=== PATIENT | male | born 1945 | race Caucasian/White ===

== ENCOUNTER → 2021-01-11 09:24 | Outpatient (BNVA) | payer MEDICARE, OTHER, SELFPAY | PROVIDERS: Visit Provider Nurse Practitioner Family | DX: Z20.822 Contact with and (suspected) exposure to COVID-19 (principal) | CPT/HCPCS: 87635 ==

== ENCOUNTER 2021-01-14 07:26 | Inpatient (IN) | payer MEDICARE, OTHER, SELFPAY ==
[2021-01-14 07:29] VITALS: BP 151/65; PULSE 66; RESP 22; TEMP 36.8; O2SAT 91; BMI 37.3
--- NOTE | 2021-01-14 07:46 | XR_ITS ---
WS: [id number] Portable AP upright chest, 01/14/2021 Clinical Data: covid /dyspnea Comparison: None. Findings: There is moderate patchy bilateral pulmonary opacity consistent with pneumonia. The heart i s slightly enlarged. No nodules, masses or effusions are seen. XR/XR chest 1V portable [id number] Impression: 1. Moderate patchy bilateral pulmonary opacities consistent with pneumonia. 2. Cardiomegaly.
--- NOTE | 2021-01-14 08:01 | W.ED.COVID ---
HPI - COVID General: Chief Complaint: ER Hold Stated Complaint: COVID +, confusion, low 02 Time Seen by Provider: 01/14/21 07:35 Triage information: Has fever, cough or shortness of breath. No known COVID + exposure last 14 days History of Present Illness: HPI Narrative: 76 for a male presents emergency room complaining of difficulty breathing. Patient tested positive for Covid on 5 is reported back 9 7 was on a PCR done at the walk-in clinic. He is moderately confused. He is aware of his confusion is difficult time answering even simple questions oxygen sats are borderline. He is requiring oxygen now at rest on room air he will maintain 91% with any effort whatsoever he desats into the mid 80s. Patient denies any chest pain. Has not had a productive cough. MD complaint: known COVID positive COVID 19 common symptoms: positive fever(s), chills, cough, non-productive cough, dyspnea, body aches, throat pain and nasal congestion; negative nausea, vomiting or diarrhea COVID 19 other sytmptoms: positive requiring oxygen; negative chest pain Onset (ago): day(s) Pertinent comorbid conditions: hypertension and obesity Treatment prior to arrival: none COVID Results: Nasal/Oral Coronavirus 2019 PCR Detected H 01/11/21 09:24 01/11/21 Review of Systems Const: Reports: fever(s), chills and body aches ENMT: Reports: throat pain and nasal congestion Card: Denies: chest pain, edema, dyspnea on exertion or orthopnea Resp: Reports: dyspnea and non-productive cough GI: Denies: abdominal pain, nausea, vomiting, hematemesis, coffee ground emesis, diarrhea, constipation, bloating, hematochezia or melena : Denies: flank pain, dysuria, urinary frequency or urinary urgency Skin/Breast: Denies: rash or pruritus PFSH ED PFSH: Medical History (Updated 01/14/21 @ 15:08 by Ken Araiza DO) BPH (benign prostatic hyperplasia) Hyperlipidemia Hypertension Pulmonary embolism Family History (Updated 01/14/21 @ 09:51 by Raffi Garnett MD) Other CAD (coronary artery disease) Cancer Social History Smoking and tobacco status: former smoker Alcohol intake: never Physical Exam Const: COMMON NORMALS: no acute distress GENERAL APPEARANCE: cooperative and comfortable HENMT: COMMON NORMALS: normocephalic and atraumatic HEAD & SCALP: normocephalic and atraumatic Neck/C-Spine: COMMON NORMALS: no JVD Resp: COMMON NORMALS: normal respiratory effort, No retractions, No use of accessory muscles and clear to auscultation bilaterally AUSCULTATION: clear to auscultation bilaterally Cardio: COMMON NORMALS: no JVD, regular rate, regular rhythm and No murmurs present (Cardio) RATE: regular rate RHYTHM: regular rhythm GI: COMMON NORMALS: Soft to palpation and No hepatosplenomegaly present AUSCULTATION: Yes normoactive bowel sounds PALPATION: Yes Soft to palpation, No Tenderness to palpation present (GI), No Guarding due to palpation present (GI) and Yes No hepatosplenomegaly present Extremity: COMMON NORMALS: normal to inspection, capillary refill normal, no clubbing, cyanosis or edema, no calf tenderness and no pedal edema Skin: COMMON NORMALS: no rashes or lesions noted GENERAL SKIN EXAM: no rashes or lesions noted Course Vital Signs: Vital signs: Vital Signs Temperature 98.3 F 01/14/21 07:29 Pulse Rate 66 01/14/21 07:29 Respiratory Rate 22 H 01/14/21 07:29 Blood Pressure 151/65 01/14/21 07:29 Pulse Oximetry 91 01/14/21 07:29 MDM - COVID MDM Narrative: Medical decision making narrative: Given his and new oxygen requirement concerned this patient may rapidly decline. Recommend that he be admitted discussed Dr. Garnett he can agrees orders are written. Lab Data: Labs: Lab Results 01/14/21 01/14/21 01/14/21 Range/Units 07:58 08:35 08:35 WBC 8.0 (4.0-10.0) 10^3/ uL RBC 5.11 (4.1-5.3) 10^6/u L Hgb 14.4 (11.7-16.6) g/dL Hct 45.3 (42.0-52.0) % MCV 88.6 (80-94) fl MCH 28.2 (28.0-34.0) pg MCHC 31.8 (30.0-36.0) g/dL RDW 15.1 (12.1-15.1) % Plt Count 200 (130-400) 10^3/c mm MPV 10.8 H (7.4-10.4) fL Neut % (Auto) 70.6 % Lymph % (Auto) 14.6 % [place] % (Auto) 13.9 % Eos % (Auto) 0.5 % Baso % (Auto) 0.2 % Neut # (Auto) 5.67 (1.8-7.7) 10^3/u L Lymph # (Auto) 1.2 (0.8-4.8) 10^3/u L [place] # (Auto) 1.1 H (0.2-0.9) 10^3/u L Eos # (Auto) 0.0 (0.0-0.8) 10^3/u L Baso # (Auto) 0.0 (0.0-0.1) 10^3/u L Nucleated RBC % (a uto) 0 % Nucleated RBCs # 0.0 /100WBC D-Dimer Cancelled Specimen Type Arterial Sample Site Radial, left ABG pH 7.45 (7.35-7.45) ABG pCO2 35.8 (35-45) mmHg ABG pO2 67.4 L (80.0-100.0) mmH g ABG HCO3 24.8 (22-26) mmol/L ABG Base Excess 1.1 (-2.0-2.0) mmol/ L Francis Test Pos Hematocrit 45.6 (42-52) % O2 Delivery Device Nc O2 Liters/Min 3.0 % FiO2 32.0 % Electrical Maintenance Engineer ID Ed Sodium (136-145) mmol/L Potassium (3.5-5.1) mmol/L Chloride (98-107) mmol/L Carbon Dioxide (22-29) mmol/L Anion Gap (5-19) BUN (8-23) mg/dL Creatinine (0.7-1.2) mg/dL GFR Calculation Glucose (65-115) mg/dL Calculated Osmolal ity (285-295) mOsm/k g Lactic Acid (0.5-2.2) mmol/L Calcium (8.5-10.5) mg/dL Total Bilirubin (0.15-1.2) mg/dL AST (0-40) U/L ALT (0-41) U/L Alkaline Phosphata se (40-130) IU/L Creatine Kinase (39-308) U/L Troponin T Gen 5 n g/L (0-15) ng/L C-Reactive Protein (0.0-4.9) mg/L NT-Pro-B Natriuret Pep (0-125) pg/mL Total Protein (6.6-8.7) g/dL Albumin (3.5-5.2) g/dL Globulin (1.3-4.6) g/dL Procalcitonin (0-0.5) ng/mL 01/14/21 01/14/21 01/14/21 Range/Units 08:35 08:35 09:20 WBC (4.0-10.0) 10^3/ uL RBC (4.1-5.3) 10^6/u L Hgb (11.7-16.6) g/dL Hct (42.0-52.0) % MCV (80-94) fl MCH (28.0-34.0) pg MCHC (30.0-36.0) g/dL RDW (12.1-15.1) % Plt Count (130-400) 10^3/c mm MPV (7.4-10.4) fL Neut % (Auto) % Lymph % (Auto) % [place] % (Auto) % Eos % (Auto) % Baso % (Auto) % Neut # (Auto) (1.8-7.7) 10^3/u L Lymph # (Auto) (0.8-4.8) 10^3/u L [place] # (Auto) (0.2-0.9) 10^3/u L Eos # (Auto) (0.0-0.8) 10^3/u L Baso # (Auto) (0.0-0.1) 10^3/u L Nucleated RBC % (a uto) % Nucleated RBCs # /100WBC D-Dimer 0.79 H Specimen Type Sample Site ABG pH (7.35-7.45) ABG pCO2 (35-45) mmHg ABG pO2 (80.0-100.0) mmH g ABG HCO3 (22-26) mmol/L ABG Base Excess (-2.0-2.0) mmol/ L Francis Test Hematocrit (42-52) % O2 Delivery Device O2 Liters/Min % FiO2 % Electrical Maintenance Engineer ID Sodium 137 (136-145) mmol/L Potassium 4.8 (3.5-5.1) mmol/L Chloride 101 (98-107) mmol/L Carbon Dioxide 20 L (22-29) mmol/L Anion Gap 20.8 H (5-19) BUN 30 H (8-23) mg/dL Creatinine 1.5 H (0.7-1.2) mg/dL GFR Calculation Not Reportable Glucose 96 (65-115) mg/dL Calculated Osmolal ity 290 (285-295) mOsm/k g Lactic Acid 1.4 (0.5-2.2) mmol/L Calcium 8.0 L (8.5-10.5) mg/dL Total Bilirubin 0.5 (0.15-1.2) mg/dL AST 35 (0-40) U/L ALT 30 (0-41) U/L Alkaline Phosphata se 60 (40-130) IU/L Creatine Kinase (39-308) U/L Troponin T Gen 5 n g/L (0-15) ng/L C-Reactive Protein 99.0 H (0.0-4.9) mg/L NT-Pro-B Natriuret Pep (0-125) pg/mL Total Protein 6.3 L (6.6-8.7) g/dL Albumin 3.5 (3.5-5.2) g/dL Globulin 2.8 (1.3-4.6) g/dL Procalcitonin 0.15 (0-0.5) ng/mL 01/14/21 01/14/21 Range/Units 09:20 09:20 WBC (4.0-10.0) 10^3/ uL RBC (4.1-5.3) 10^6/u L Hgb (11.7-16.6) g/dL Hct (42.0-52.0) % MCV (80-94) fl MCH (28.0-34.0) pg MCHC (30.0-36.0) g/dL RDW (12.1-15.1) % Plt Count (130-400) 10^3/c mm MPV (7.4-10.4) fL Neut % (Auto) % Lymph % (Auto) % [place] % (Auto) % Eos % (Auto) % Baso % (Auto) % Neut # (Auto) (1.8-7.7) 10^3/u L Lymph # (Auto) (0.8-4.8) 10^3/u L [place] # (Auto) (0.2-0.9) 10^3/u L Eos # (Auto) (0.0-0.8) 10^3/u L Baso # (Auto) (0.0-0.1) 10^3/u L Nucleated RBC % (a uto) % Nucleated RBCs # /100WBC D-Dimer Specimen Type Sample Site ABG pH (7.35-7.45) ABG pCO2 (35-45) mmHg ABG pO2 (80.0-100.0) mmH g ABG HCO3 (22-26) mmol/L ABG Base Excess (-2.0-2.0) mmol/ L Francis Test Hematocrit (42-52) % O2 Delivery Device O2 Liters/Min % FiO2 % Electrical Maintenance Engineer ID Sodium (136-145) mmol/L Potassium (3.5-5.1) mmol/L Chloride (98-107) mmol/L Carbon Dioxide (22-29) mmol/L Anion Gap (5-19) BUN (8-23) mg/dL Creatinine (0.7-1.2) mg/dL GFR Calculation Glucose (65-115) mg/dL Calculated Osmolal ity (285-295) mOsm/k g Lactic Acid (0.5-2.2) mmol/L Calcium (8.5-10.5) mg/dL Total Bilirubin (0.15-1.2) mg/dL AST (0-40) U/L ALT (0-41) U/L Alkaline Phosphata se (40-130) IU/L Creatine Kinase 91 (39-308) U/L Troponin T Gen 5 n g/L 17 H (0-15) ng/L C-Reactive Protein (0.0-4.9) mg/L NT-Pro-B Natriuret Pep 402 H (0-125) pg/mL Total Protein (6.6-8.7) g/dL Albumin (3.5-5.2) g/dL Globulin (1.3-4.6) g/dL Procalcitonin (0-0.5) ng/mL COVID Results: Nasal/Oral Coronavirus 2019 PCR Detected H 01/11/21 09:24 01/11/21 Discharge Plan Discharge Patient Disposition: Admitted As Inpatient Admit Provider: Raffi Garnett Clinical Impression: Pneumonia due to COVID-19 virus, Acute kidney injury Condition: Stable Coding Level of Care Code ED Scale Shooter for Emmie Fwd Exam Comprehensive
[2021-01-14 08:08] LABS: ABG PCO2 35.8 mmHg (35-45); ABG PH Result 7.45 (7.35-7.45); Arterial Blood Gas Hematocrit 45.6 % (42-52); Base Excess ABG 1.1 mmol/L (-2.0-2.0); Blood Gas Allen Test Pos; Blood Gas Sample Type Arterial; HCO3 ABG 24.8 mmol/L (22-26); PO2 ABG 67.4 mmHg (80.0-100.0)
[2021-01-14 08:09] LABS: Blood Gas Operator Identificat ED; Blood Gas Sample Site Radial, left; Oxygen Device NC
[2021-01-14 08:51] LABS: Basophils % 0.2 %; Eosinophils % 0.5 %; Hematocrit 45.3 % (42.0-52.0); Hemoglobin 14.4 g/dL (11.7-16.6); Lymphocytes # 1.2 10^3/uL (0.8-4.8); Lymphocytes % 14.6 %; Mean Corpuscular HGB Conc 31.8 g/dL (30.0-36.0); Mean Corpuscular Hemoglobin 28.2 pg (28.0-34.0); Mean Corpuscular Volume 88.6 fl (80-94); Mean Platelet Volume 10.8 fL (7.4-10.4); Monocytes # 1.1 10^3/uL (0.2-0.9); Monocytes % 13.9 %; Neutrophils # 5.67 10^3/uL (1.8-7.7); Neutrophils % 70.6 %; Nucleated Red Blood Cells % 0 %; Platelet Count 200 10^3/cmm (130-400); Red Blood Count 5.11 10^6/uL (4.1-5.3); Red Cell Distribution Width 15.1 % (12.1-15.1)
[2021-01-14 09:11] LABS: Alanine Aminotransferase 30 U/L (0-41); Albumin Level 3.5 g/dL (3.5-5.2); Alkaline Phosphatase 60 IU/L (40-130); Blood Urea Nitrogen 30 mg/dL (8-23); Carbon Dioxide 20 mmol/L (22-29); Chloride 101 mmol/L (98-107); Globulin 2.8 g/dL (1.3-4.6); Glucose 96 mg/dL (65-115); Osmolality Calculated 290 mOsm/kg (285-295); Sodium 137 mmol/L (136-145); Total Bilirubin 0.5 mg/dL (0.15-1.2); Total Protein 6.3 g/dL (6.6-8.7)
[2021-01-14 09:15] LABS: Anion Gap 20.8 (5-19); Potassium 4.8 mmol/L (3.5-5.1)
[2021-01-14 09:16] LABS: Aspartate Amino Transferase 35 U/L (0-40)
[2021-01-14 09:18] LABS: Procalcitonin 0.15 ng/mL (0-0.5)
[2021-01-14 09:33] LABS: Lactic Sepsis W/Reflex 1.4 mmol/L (0.5-2.2)
[2021-01-14 09:46] LABS: D Dimer 0.79 ug/mIFEU (0-0.59)
--- NOTE | 2021-01-14 09:50 | PM.HP ---
Providers/Chief Complaint Primary Care Provider: Jaime Macias Chief Complaint: O2 at 90 History of Present Illness Yaron Garzon is a 76 year old male prior smoker with history of PE, and hyperlipidemia. He was sent to the ER from the infusion lab. Prior to his monoclonal antibody infusion he was told that his oxygen was too low for infusion. He reports he began having symptoms on Sunday the with severe diarrhea which has now subsided. He tested positive for Covid on Sunday the . He is currently requiring 3 L of oxygen and is not normally on oxygen at home. He reports that he is short of breath but this is not far from baseline due to a prior PE. He reports he has coughed up 4-5 episodes of bloody streaked sputum. He denies chest pain, fever, and headache. He received his second dose of the Moderna vaccine in July. Review of Systems General: Reports: 10 or more systems reviewed and unremarkable except in HPI and below Const: Denies: fever(s) or chills Eyes: Denies: change in vision ENMT: Denies: throat pain Card: Denies: chest pain or palpitations Resp: Reports: dyspnea and hemoptysis (blood streaked sputum) GI: Denies: abdominal pain, nausea or vomiting : Denies: flank pain, difficulty urinating or dysuria Musc: Denies: neck pain or back pain Skin/Breast: Denies: rash Neuro: Denies: headache(s) Psych: Denies: anxiety Endo: Denies: polyuria [place]/Lymph: Denies: easy bruising All/Imm: Denies: urticaria Medications/Allergies Home Medications Medication Instructions Recorded Confirmed Last Taken Type aspirin 81 mg tablet,delayed 81 mg PO DAILY 01/11/21 01/13/21 Unknown History release finasteride 5 mg tablet 5 mg PO DAILY 01/11/21 01/13/21 Unknown History lisinopril 20 1 tab PO DAILY 01/11/21 01/13/21 Unknown History mg-hydrochlorothiazide 12.5 mg tablet lovastatin 40 mg tablet 40 mg PO DAILY 01/11/21 01/13/21 Unknown History multivitamin 1 tab PO DAILY 01/11/21 01/13/21 Unknown History tamsulosin 0.4 mg capsule 0.4 mg PO DAILY 01/11/21 01/13/21 Unknown History Allergies Allergy/AdvReac Type Severity Reaction Status Date / Time No Known Allergies Allergy Verified 01/14/21 09:51 PFSH Acute PFSH: Medical History (Updated 01/14/21 @ 10:14 by Raffi Garnett MD) BPH (benign prostatic hyperplasia) Hyperlipidemia Hypertension Pulmonary embolism Family History (Updated 01/14/21 @ 09:51 by Raffi Garnett MD) Other CAD (coronary artery disease) Cancer Social History Smoking and tobacco status: former smoker Alcohol intake: never Supplemental PFSH Information: No surgical history Vitals/I&O/Wt Last Vital Signs Temp 98.3 F 01/14/21 07:29 Pulse 66 01/14/21 07:29 Resp 22 H 01/14/21 07:29 BP 151/65 01/14/21 07:29 Pulse Ox 91 01/14/21 07:29 Weight last 48 hrs Weight 117.934 kg Physical Exam Narrative: EXAM NARRATIVE: General is a male sitting on the side of the bed in no acute distress HEENT pupils reactive, oropharynx clear. Neck supple no lymphadenopathy or JVD. Respiratory right lungs clear, slight coarse breath sounds in right lower lobe. No wheezing. Cardio regular rate and rhythm. No murmurs GI abdomen soft, nontender, positive bowel sounds. Extremities no cyanosis or clubbing. 1+ lower extremity edema, left greater than right deferred Neuro no focal neurological deficits Data : 01/14/21 08:35 01/14/21 08:35 Other data: D-dimer 0.79 Anion gap 20.8 CRP 99 Chest x-ray moderate patchy bilateral pulmonary opacities consistent with pneumonia ABG demonstrates a pH of 7.45, PCO2 of 36, PO2 of 67 on 3 L LFTs are normal Troponin pending Procalcitonin 0.15 Urinalysis ordered Covid PCR positive on January 11 A&P Assessment and plan (1) Pneumonia due to COVID-19 virus: Significant COVID-19 pneumonia requiring oxygen currently at 3 L. Placed on remdesivir Placed on dexamethasone Pulmonary toilet Incentive spirometry Close follow-up for improvement. For any worsening consider Actemra Status: Acute (2) Hemoptysis: Patient with only mildly elevated D-dimer. However, he has past history of pulmonary embolism. Check CTA. Check venous duplex lower extremities. Status: Acute (3) Acute kidney injury: Hold lisinopril and hydrochlorothiazide Encourage p.o. intake Avoid significant IV fluids secondary to potential for ARDS and worsening respiratory status with significant IV fluids. Check CK Status: Acute (4) Hypertension: Hold lisinopril and hydrochlorothiazide secondary to renal insufficiency Status: Acute Additional A&P Information Multiple other medical problems as outlined in past medical history Full code Lovenox for DVT prophylaxis Attestations Medical Necessity Statement*: Will need greater than 2 midnight stay for evaluation and treatment of COVID-19 pneumonia requiring oxygen. Time Spent in Patient Care: Greater than 35 minutes Coding Level of Care Code Acute Surface Hydrologist for [facility] Fwd Diagnoses Pneumonia due to COVID-19 virus U07.1; J12.82 Hemoptysis R04.2 Acute kidney injury N17.9 Hypertension I10
--- NOTE | 2021-01-14 09:51 | PC.PHAR ---
pt states he takes care of his own medications-pt states he only takes the medications entered
--- NOTE | 2021-01-14 09:53 | CT_ITS ---
WS: [id number] CTA OF THE CHEST WITH PULMONARY EMBOLISM PROTOCOL TECHNIQUE: High-resolution contrast enhanced CTA of the chest with coronal and sagittal reformatted i mages with pulmonary embolism protocol. MIP images are also reviewed. CLINICAL INFORMATION: hemoptysis COMPARISON: None. DLP: 641.[address] scans at [facility] use at least one of these dose optimization techniques: automated e xposure control; mA and/or kV adjustment per patient size (includes targeted exams where dose is matc hed to clinical indication); or iterative reconstruction. FINDINGS: Proximal main pulmonary arteries are normal. Normal segmental and subsegmental pulmonary arteries. No filling defects. No evidence of pulmonary embolus. Bilateral hazy left greater than right groundglass infiltrates in a perihilar distribution left great er than right and left greater than right lower lobes. No focal consolidation. Subsegmental atelectas is in the lung bases. Trace bilateral pleural fluid. Aortic calcification. Normal caliber thoracic aorta. Coronary calcification. Small right thyroid nodu le. Enlarged anterior mediastinal, paratracheal, hilar and subcarinal lymph nodes nonspecific but lik shane reactive. Largest lymph node right hilum measuring 2.3 CM. No axillary lymphadenopathy. Adrenal glands are normal. Normal GE junction. CT/CT angio chest PE protcl [id number] IMPRESSION: 1. No evidence of pulmonary embolus. 2. Bilateral hilar and lower lobe hazy groundglass infiltrates compatible with COVID 19 pneumonia. 3. Trace bilateral pleural fluid. 4. Enlarged mediastinal, hilar, paratracheal and subcarinal lymph nodes nonspe cific but likely reactive.
[2021-01-14 10:25] LABS: Troponin T (5th) Once 17 ng/L (0-15)
[2021-01-14] MEDS: remdesivir 200 MG in sodium chloride 0.9% (100 ml) 60 ML 100 MG IV (10:59)
[2021-01-14] MEDS: dexamethasone 10 mg/mL INJ 6 MG IVP (10:59)
[2021-01-14 11:14] LABS: Creatine Phosphokinase 91 U/L (39-308); NT Pro B Type Natriuretic Pept 402 pg/mL (0-125)
[2021-01-14] MEDS: iodixanol 320 mg/mL 100mL Btl IV (11:17)
[2021-01-14 15:10] LABS: Bacteria Urine TRACE /hpf; Bilirubin Urine 1+ (Negative); Blood Urine Neg (Negative); Glucose Urine UA Norm (Normal); Ketones Urine Negative (Negative); Leukocyte Esterase Urine Trace (Negative); Nitrate Urine Negative (Negative); Protein Urine 1+ (Negative); RBC Urine 0-4 /hpf (0-2); Specific Gravity, Urine 1.015 (1.005-1.030); Urine Appearance SL Hazy (CLEAR); Urine Color Amber (Yellow); Urobilinogen Urine Norm (Negative); pH Urine 6.5 (5-7)
[2021-01-14 15:11] LABS: Add Urine Culture? No; Mucus Urine 1+ /hpf
[2021-01-14 15:28] VITALS: BP 123/62; PULSE 63; RESP 22; O2SAT 94
[2021-01-14 16:48] VITALS: BMI 37.3
[2021-01-14 16:49] VITALS: BP 126/65; PULSE 60; RESP 18; TEMP 36.8; O2SAT 95
--- NOTE | 2021-01-14 16:49 | USR_ITS ---
PROCEDURE INFORMATION: Exam: US Duplex Lower Extremity Veins, Bilateral Exam date and time: 01/14/2021 4:49 PM Age: 76 years old Clinical indication: Swelling (edema) of limb; Lower extremity, bilateral; Additional info: Edema, increased dimer, prior history lle dvt TECHNIQUE: Imaging protocol: Real-time duplex ultrasound of the extremities with 2-D smith scale, color Doppler flow and spectral waveform analysis with image documentation. Complete exam focused on the bilateral lower extremity veins. COMPARISON: No relevant prior studies available. FINDINGS: Right deep veins: Unremarkable. The common femoral, femoral, proximal profunda femoral and popliteal veins are patent without thrombus. Normal Doppler waveforms. Normal compressibility and/or augmentation response. Right superficial veins: Saphenofemoral junction is patent without thrombus. Left deep veins: Unremarkable. The common femoral, femoral, proximal profunda femoral and popliteal veins are patent without thrombus. Normal Doppler waveforms. Normal compressibility and/or augmentation response. Left superficial veins: Saphenofemoral junction is patent without thrombus. Soft tissues: Unremarkable. US/CV venous duplex [facility] [id number] IMPRESSION: No evidence of deep vein thrombosis.
[2021-01-14] MEDS: famotidine 20 mg Tablet PO (17:29)
[2021-01-14] MEDS: enoxaparin 40 mg/0.4 mL Syringe SUBCUT (17:29)
[2021-01-14 18:47] VITALS: PULSE 92; RESP 22; O2SAT 90
--- NOTE | 2021-01-14 19:51 | PC.NURSE ---
End of shift report Patient is A&Ox3. Respirations even and non-labored on 3 liters nasal cannula. Patient tested positive for Coviid on 01/11/21. Patient came to get the BAM infusion today and his oxygen was to low so they admitted him. Report to surgical technologist RN at this time.
[2021-01-14 20:00] VITALS: BP 128/68; PULSE 62; RESP 18; TEMP 37; O2SAT 94
[2021-01-15] VITALS (11 sets, daily range): BP systolic 120–162; BP diastolic 57–82; PULSE 59–92; RESP 17–20; TEMP 36.4–37.1; O2SAT 85–95
[2021-01-15] MEDS: aspirin 81 mg EC Tablet PO (05:58)
[2021-01-15] MEDS: tamsulosin 0.4 mg Capsule 0.8 MG PO (05:58)
[2021-01-15] MEDS: finasteride 5 mg Tablet PO (05:58)
[2021-01-15] MEDS: multivitamin therapeutic Tablet 1 TAB PO (05:59)
[2021-01-15] MEDS: atorvastatin 40 mg Tablet 20 MG PO (05:59)
[2021-01-15] MEDS: remdesivir 100 MG in sodium chloride 0.9% (100 ml) 80 ML IV (06:23)
[2021-01-15 07:34] LABS: Basophils % 0.1 %; Hematocrit 48.5 % (42.0-52.0); Hemoglobin 15.5 g/dL (11.7-16.6); Lymphocytes % 11.5 %; Mean Corpuscular Hemoglobin 27.4 pg (28.0-34.0); Mean Corpuscular Volume 85.8 fl (80-94); Mean Platelet Volume 10.6 fL (7.4-10.4); Monocytes # 0.7 10^3/uL (0.2-0.9); Monocytes % 8.6 %; Neutrophils # 6.75 10^3/uL (1.8-7.7); Neutrophils % 79.3 %; Nucleated Red Blood Cells % 0 %; Platelet Count 254 10^3/cmm (130-400); Red Blood Count 5.65 10^6/uL (4.1-5.3); Red Cell Distribution Width 14.6 % (12.1-15.1); White Blood Count 8.5 10^3/uL (4.0-10.0)
[2021-01-15 08:03] LABS: Alanine Aminotransferase 33 U/L (0-41); Albumin Level 3.4 g/dL (3.5-5.2); Alkaline Phosphatase 65 IU/L (40-130); Anion Gap 18.6 (5-19); Aspartate Amino Transferase 31 U/L (0-40); Blood Urea Nitrogen 40 mg/dL (8-23); C Reactive Protein 86.1 mg/L (0.0-4.9); Calcium 8.7 mg/dL (8.5-10.5); Carbon Dioxide 23 mmol/L (22-29); Chloride 104 mmol/L (98-107); Creatinine Clr Calc Pharmacy 75.8113; Globulin 3.8 g/dL (1.3-4.6); Glucose 109 mg/dL (65-115); Magnesium 2.4 mg/dL (1.7-2.3); Osmolality Calculated 302 mOsm/kg (285-295); Potassium 4.6 mmol/L (3.5-5.1); Sodium 141 mmol/L (136-145); Total Bilirubin 0.3 mg/dL (0.15-1.2); Total Protein 7.2 g/dL (6.6-8.7)
[2021-01-15] MEDS: famotidine 20 mg Tablet PO ×2 (09:16→17:14)
[2021-01-15] MEDS: dexamethasone 10 mg/mL INJ 6 MG IVP (09:16)
--- NOTE | 2021-01-15 17:09 | PM.PN ---
Subjective Subjective: Interval history: Patient endorsing feeling better he was saturating well on room air and he did walk for 5 minutes in the room and his O2 saturation remained above 92%, will like to watch him for 1 more day will get home O2 evaluation before discharge patient is able to tolerate diet no diarrhea Vitals/I&O/Wt Last Vital Signs Temp 97.6 F 01/15/21 12:00 Pulse 60 01/15/21 14:37 Resp 17 01/15/21 14:33 BP 132/63 01/15/21 12:00 Pulse Ox 85 L 01/15/21 14:33 01/15/21 01/15/21 01/15/21 06:59 14:59 22:59 Intake Total 480 / 540 320 / 320 Balance 480 / 540 320 / 320 Weight last 48 hrs Weight 117.934 kg Weight 117.934 kg Physical Exam Narrative: EXAM NARRATIVE: Pleasant male S1, S2 Saturating well on room air Abdomen soft distended EOMI, PERRLA Appropriate mood and affect No joint swelling Data : 01/15/21 06:20 01/15/21 06:20 A&P Assessment and plan (1) Hypertension: Status: Acute (2) Acute kidney injury: Status: Acute (3) Hemoptysis: Status: Acute (4) Pneumonia due to COVID-19 virus: Status: Acute Additional A&P Information COVID-19 related hypoxia Resolved currently saturating well on room air Will get home O2 evaluation on discharge Continue Decadron and remdesivir Hypertension: Currently normotensive EMANUEL: Resolved Held lisinopril Full code Consistent carb diet DVT prophylaxis Lovenox Attestations Medical Necessity Statement*: Anticipating discharge tomorrow Time Spent in Patient Care: 16 - 35 minutes Coding Level of Care Code Acute Batch Tester for [facility] Fwd Diagnoses Hypertension I10 Acute kidney injury N17.9 Hemoptysis R04.2 Pneumonia due to COVID-19 virus U07.1; J12.82
[2021-01-15] MEDS: enoxaparin 40 mg/0.4 mL Syringe SUBCUT (17:14)
[2021-01-16] VITALS (9 sets, daily range): BP systolic 160–172; BP diastolic 77–83; PULSE 53–80; RESP 16–20; TEMP 36.6–36.9; O2SAT 87–96
[2021-01-16] MEDS: aspirin 81 mg EC Tablet PO (05:29)
[2021-01-16] MEDS: finasteride 5 mg Tablet PO (05:29)
[2021-01-16] MEDS: multivitamin therapeutic Tablet 1 TAB PO (05:29)
[2021-01-16] MEDS: remdesivir 100 MG in sodium chloride 0.9% (100 ml) 80 ML IV (05:29)
[2021-01-16] MEDS: atorvastatin 40 mg Tablet 20 MG PO (05:29)
[2021-01-16] MEDS: tamsulosin 0.4 mg Capsule 0.8 MG PO (05:29)
[2021-01-16 07:08] LABS: Basophils % 0.1 %; Hematocrit 45.5 % (42.0-52.0); Hemoglobin 14.7 g/dL (11.7-16.6); Lymphocytes # 0.8 10^3/uL (0.8-4.8); Mean Corpuscular HGB Conc 32.3 g/dL (30.0-36.0); Mean Corpuscular Hemoglobin 27.8 pg (28.0-34.0); Mean Platelet Volume 10.6 fL (7.4-10.4); Monocytes % 8.2 %; Neutrophils % 83.9 %; Nucleated Red Blood Cells % 0 %; Platelet Count 265 10^3/cmm (130-400); Red Blood Count 5.29 10^6/uL (4.1-5.3); Red Cell Distribution Width 14.4 % (12.1-15.1)
[2021-01-16 07:42] LABS: Anion Gap 14.6 (5-19); Blood Urea Nitrogen 41 mg/dL (8-23); C Reactive Protein 37.9 mg/L (0.0-4.9); Calcium 8.7 mg/dL (8.5-10.5); Carbon Dioxide 24 mmol/L (22-29); Chloride 104 mmol/L (98-107); Glucose 95 mg/dL (65-115); Osmolality Calculated 296 mOsm/kg (285-295); Potassium 4.6 mmol/L (3.5-5.1); Sodium 138 mmol/L (136-145)
[2021-01-16] MEDS: dexamethasone 10 mg/mL INJ 6 MG IVP (08:54)
[2021-01-16] MEDS: famotidine 20 mg Tablet PO (09:55)
--- NOTE | 2021-01-16 10:31 | P.DS_ITS ---
Discharge Providers Date of Admission: 01/14/21 10:17 Date of Discharge: January 16, 2021 Attending Provider at Admission: Raffi Garnett MD Attending Provider at Discharge: Henny Reid MD Primary Care Provider: Jaime Macias Diagnoses at Discharge Discharge Diagnosis (1) Hypertension: Status: Acute (2) Acute kidney injury: Status: Acute (3) Hemoptysis: Status: Acute (4) Pneumonia due to COVID-19 virus: Status: Acute Reason for Visit Reason for Visit: O2 at 90 Hospital Course Hospital Course HPI done by Dr. Garnett Yaron Garzon is a 76 year old male prior smoker with history of PE, and hyperlipidemia. He was sent to the ER from the infusion lab. Prior to his monoclonal antibody infusion he was told that his oxygen was too low for infusion. He reports he began having symptoms on Sunday the with severe diarrhea which has now subsided. He tested positive for Covid on Sunday the . He is currently requiring 3 L of oxygen and is not normally on oxygen at home. He reports that he is short of breath but this is not far from baseline due to a prior PE. He reports he has coughed up 4-5 episodes of bloody streaked sputum. He denies chest pain, fever, and headache. He received his second dose of the Moderna vaccine in July. Hospital course Patient was admitted for management of hypoxia related to COVID-19 infection. He did receive couple of doses of remdesivir and he was kept on IV Decadron. His symptoms and shortness of breath improved he qualified for 3 L home O2. CTA rule out PE, no venous clots. He has stayed afebrile, patient is endorsing normal appetite no diarrhea. He is willing to go home today on 3 L oxygen. I have prescribed Medrol pack and albuterol rescue inhaler. was updated Physical Exam Narrative: EXAM NARRATIVE: Pleasant male S1, S2 Saturating well on 3L NC Abdomen soft distended EOMI, PERRLA Appropriate mood and affect No joint swelling Discharge Data Data Completed and Pending: Completed Studies During Hospitalization Category Date Time Status CT angio chest PE protcl 23595 Urge nt Cat Scan 01/14/21 09:53 Completed XR chest 1V mary ble [id number] Stat Exams 01/14/21 07:46 [place] [id number] Urgent Ultrasound 01/14/21 16:49 Completed Labs from last 24 hours 01/16/21 01/16/21 06:06 06:06 WBC 12.0 H RBC 5.29 Hgb 14.7 Hct 45.5 MCV 86.0 MCH 27.8 L MCHC 32.3 RDW 14.4 Plt Count 265 MPV 10.6 H Neut % (Auto) 83.9 Lymph % (Auto) 7.0 [place] % (Auto) 8.2 Eos % (Auto) 0.0 Baso % (Auto) 0.1 Neut # (Auto) 10.10 H Lymph # (Auto) 0.8 [place] # (Auto) 1.0 H Eos # (Auto) 0.0 Baso # (Auto) 0.0 Nucleated RBC % (a uto) 0 Nucleated RBCs # 0.0 Sodium 138 Potassium 4.6 Chloride 104 Carbon Dioxide 24 Anion Gap 14.6 BUN 41 H Creatinine 1.0 GFR Calculation Not Reportable Glucose 95 Calculated Osmolal ity 296 H Calcium 8.7 C-Reactive Protein 37.9 H Vitals: Last Vital Signs Temp 97.8 F 01/16/21 07:26 Pulse 69 01/16/21 09:43 Resp 17 01/16/21 09:41 BP 172/77 01/16/21 07:26 Pulse Ox 94 01/16/21 09:44 Discharge Plan Discharge Patient Disposition: Home Condition: Stable Prescriptions: New methylprednisolone [Medrol (Rasta)] 4 mg tablets,dose pack See Rx Instructions .ROUTE .COMPLEX Qty: 21 RF: 0 albuterol sulfate 90 mcg/actuation HFA aerosol inhaler 2 inh inhalation QID PRN (Reason: shortness of breath or wheezing) Qty: 8.5 RF: 0 Continued lisinopril-hydrochlorothiazide 20-12.5 mg tablet 1 tab PO QAM RF: 0 tamsulosin 0.4 mg capsule 0.8 mg PO QAM RF: 0 lovastatin 40 mg tablet 40 mg PO QAM RF: 0 finasteride 5 mg tablet 5 mg PO QAM RF: 0 aspirin [Aspirin Low Dose] 81 mg tablet,delayed release (DR/EC) 81 mg PO QAM RF: 0 multivitamin Tablet 1 tab PO QAM RF: 0 Discharge Orders: Discharge Order (Routine); Ordered 01/16/21 Ordered By: Henny Reid Other Ambulatory Orders: DME: Oxygen (Order) Location: None Selected Ordered By: Henny Reid Referrals: [facility] [Outside] Jaime Macias [Primary Care Provider] - (Please call Sunday to schedule a follow up appointment.) Discharge Diet: Cardiac Discharge Activity: Resume usual activity Patient Instructions: Albuterol (By breathing), Methylprednisolone (By mouth), Viral Pneumonia (GEN), Opioid Safety, Pneumonia Stoplight, Using Oxygen at Home Activity Restrictions/Additional Instructions: Please take steroid pack 1 week regimen You will need 3 L of oxygen, [id number] and you can increase up to 10 L if O2 saturation stays below 89 in case of worsening of chest pain or shortness of breath please come back to the ER for further evaluation There is no lung clot or clot in your legs I am giving you albuterol as rescue inhaler which you can use on as-needed basis Discharge Attestations Time Spent in Discharge Care*: less than 30 min Quality Metrics Clinical Quality Measures During this hospital stay, did patient experience: None Coding Level of Care Code Acute [facility] note Diagnoses Hypertension I10 Acute kidney injury N17.9 Hemoptysis R04.2 Pneumonia due to COVID-19 virus U07.1; J12.82
--- NOTE | 2021-01-17 12:12 | PC.SOCIAL ---
discharge follow up call made. spoke with patients . patient is using O2, tolerating well. follow up appointment made with Dr. Reid. Patients aware of follow up appointment.
== END 2021-01-16 12:25 | disposition home or self-care (01) | DRG 177 ==
LOC: ER 11:33 → MEDSURG 14:45
PROVIDERS: Admitting Provider Internal Medicine; Emergency Provider Family Medicine; Visit Provider Internal Medicine
DX: U07.1 COVID-19 (principal); J12.82 Pneumonia due to coronavirus disease 2019; N17.9 Acute kidney failure, unspecified; R04.2 Hemoptysis; N40.0 Benign prostatic hyperplasia without lower urinary tract symptoms; E78.5 Hyperlipidemia, unspecified; I10 Essential (primary) hypertension; Z86.711 Personal history of pulmonary embolism; Z87.891 Personal history of nicotine dependence
CPT/HCPCS: 36415; 36600; 71045; 71275; 80048; 80053; 81001; 82550; 82803; 83605; 83735; 83880; 84145; 84484; 85025; 85378; 86140; 87635; 93970; 94640; 96365; 96372; 96375; 99285; J1100; J1650; J3535; Q9967

== ENCOUNTER → 2022-02-06 08:30 | Outpatient (BNVA) | payer MEDICARE, OTHER, SELFPAY | PROVIDERS: PCP Family Medicine; Visit Provider Family Medicine | DX: I10 Essential (primary) hypertension (principal); D72.829 Elevated white blood cell count, unspecified | CPT/HCPCS: 80053; 85025 ==

== ENCOUNTER → 2022-12-11 13:41 | Outpatient (BNVA) | payer MEDICARE, OTHER, SELFPAY | PROVIDERS: PCP Family Medicine; Visit Provider Surgery | DX: Z12.11 Encounter for screening for malignant neoplasm of colon (principal) | CPT/HCPCS: 99024; 99203 ==

== ENCOUNTER 2023-01-11 07:45 | Day surgery (SDC) | payer MEDICARE, OTHER, SELFPAY ==
[2023-01-09 12:52] VITALS: BMI 33.0
--- NOTE | 2023-01-11 06:28 | W.PM.OPSUD ---
Surgery/Procedure H&P Update DATE OF PROCEDURE: January 11, 2023 DATE H&P PERFORMED: 12/11/22 H&P UPDATE INFORMATION: I have reviewed H&P completed within last 30 days, I have examined patient prior to procedure, No changes to prior documentation and H&P is in [facility] EMR on date indicated PLANNED PROCEDURE: Operation Date: 01/11/23 09:00 Proposed Procedures p Colonoscopy 70776, Z12.11(Not Applicable) - Luisito Santizo MD
[2023-01-11 08:00] VITALS: BP 161/74; PULSE 63; RESP 18; TEMP 36.4; O2SAT 97
[2023-01-11] MEDS: sodium chloride 0.9% 1,000 ML 30 ML IV (08:04)
--- NOTE | 2023-01-11 08:38 | ANES.PREANE2 ---
Pre-Anesthetic Assessment Height/Weight: Height 1.78 m Weight 104.326 kg Temp Pulse Resp BP Pulse Ox O2 Del Method 97.6 F 63 18 161/74 97 Room Air 01/11/23 08:00 01/11/23 08:00 01/11/23 08:00 01/11/23 08:00 01/11/23 08:00 01/11/23 08:00 Operation Date: 01/11/23 09:00 Proposed Procedures p Colonoscopy 18811, Z12.11(Not Applicable) - Luisito Santizo MD Familial anesthetic complications: None Was Beta Miah taken within 24 hours: N/A Was Clonidine taken within 24 hours: N/A Last intake: Intake Last Liquid Date 01/10/23 Last Liquid Time 22:00 Last Solid Date 01/09/23 Social No alcohol and No tobacco Exam alert, oriented x 3, clear to auscultation bilaterally and regular rate & rhythm Airway Mallampati: Class I Dentition: partials Pulmonary Hx DVT w/ PE, unknown etiologic event CV/HEM Hypertension Metabolic Hyperlipidemia Anesthetic Plan ASA status: 2 Anesthesia: MAC Risk of > 500 ml blood loss (7ml/kg in children): No Medications/Allergies Home Medications Medication Instructions Recorded Confirmed Last Taken Type aspirin 81 mg tablet,delayed 81 mg PO QAM 01/11/21 01/09/23 01/07/23 History release (Mane Low Dose Aspirin) finasteride 5 mg tablet 5 mg PO QAM 01/11/21 01/09/23 01/10/23 History multivitamin 1 tab PO QAM 01/11/21 01/09/23 01/10/23 History tamsulosin 0.4 mg capsule 0.4 mg PO QAM 01/11/21 01/09/23 01/10/23 History hydrochlorothiazide 12.5 mg tablet 12.5 mg PO DAILY 01/09/23 01/09/23 01/10/23 History lisinopril 40 mg tablet 40 mg PO DAILY 01/09/23 01/09/23 01/10/23 History lovastatin 40 mg tablet 40 mg PO DAILY 01/09/23 01/09/23 01/10/23 History Allergies Allergy/AdvReac Type Severity Reaction Status Date / Time No Known Allergies Allergy Verified 01/11/23 07:57 Current Medications Generic Name Dose Route Start Last Admin Trade Name Freq PRN Reason Stop Dose Admin Sodium Chloride 1,000 mls @ 30 mls/hr 01/11/23 08:00 01/11/23 08:04 Sodium Chloride 0.9% IV 01/12/23 07:59 30 mls/hr .Q24H BONNIE Administration PFSH Anesthesia Medical History (Updated 12/11/22 @ 14:19 by Luisito Santizo MD) BPH (benign prostatic hyperplasia) Hyperlipidemia Hypertension Pulmonary embolism Family History Other CAD (coronary artery disease) Cancer Social History Smoking and tobacco status: never smoked Alcohol intake: never Data Anesthesia Cardiac Studies: No Data to Display
[2023-01-11 09:28] VITALS: BP 125/73; PULSE 60; RESP 20; TEMP 36.4; O2SAT 96
[2023-01-11 09:39] VITALS: BP 132/73; PULSE 62; RESP 17; O2SAT 96
--- NOTE | 2023-01-11 10:05 | ANE.PACU2 ---
Inpatient post-anesthesia follow up: Airway intact: Yes Vital signs: Temperature 97.5 F Pulse Rate 62 Respiratory Rate 17 Blood Pressure 132/73 Pulse Oximetry 96 Oxygen Delivery Me thod Room Air Oxygen Flow Rate Fraction of Inspir ed Oxygen Hydration adequate: Yes Nausea and vomiting: No Pain level: 1 Mental status: Baseline
== END 2023-01-11 10:06 | disposition home or self-care (01) ==
PROVIDERS: PCP Family Medicine; Visit Provider Surgery
PROC: 0DJD8ZZ Inspection of Lower Intestinal Tract, Via Natural or Artificial Opening Endoscopic (ICD-10-PCS; CPT 45378; principal; 2023-01-11 09:00)
DX: Z12.11 Encounter for screening for malignant neoplasm of colon (principal); K57.30 Diverticulosis of large intestine without perforation or abscess without bleeding; D12.8 Benign neoplasm of rectum; Z86.718 Personal history of other venous thrombosis and embolism; Z86.711 Personal history of pulmonary embolism; I10 Essential (primary) hypertension; E78.5 Hyperlipidemia, unspecified; Z79.82 Long term (current) use of aspirin; N40.0 Benign prostatic hyperplasia without lower urinary tract symptoms
CPT/HCPCS: 45380; 88305; J2704; J7030

== ENCOUNTER → 2023-01-25 14:00 | Outpatient (BNVA) | payer MEDICARE, OTHER, SELFPAY | PROVIDERS: PCP Family Medicine; Visit Provider Surgery | DX: Z09 Encounter for follow-up examination after completed treatment for conditions other than malignant neoplasm (principal) | CPT/HCPCS: 99213 ==

== ENCOUNTER → 2023-02-05 08:53 | Outpatient (BNVA) | payer MEDICARE, OTHER, SELFPAY | PROVIDERS: PCP Family Medicine; Visit Provider Family Medicine | DX: I10 Essential (primary) hypertension (principal); N40.0 Benign prostatic hyperplasia without lower urinary tract symptoms; E78.2 Mixed hyperlipidemia; Z00.00 Encounter for general adult medical examination without abnormal findings; Z12.5 Encounter for screening for malignant neoplasm of prostate | CPT/HCPCS: 80053; 80061; 85025; G0103 ==

== ENCOUNTER → 2024-05-29 08:57 | Outpatient (BNVA) | payer MEDICARE, OTHER, SELFPAY | PROVIDERS: PCP Family Medicine; Visit Provider Family Medicine | DX: B35.1 Tinea unguium (principal) | CPT/HCPCS: 80053 ==

== ENCOUNTER → 2024-12-19 08:00 | Outpatient (BNVA) | payer MEDICARE, OTHER, SELFPAY | PROVIDERS: PCP Family Medicine; Visit Provider Physician Assistant | DX: M79.641 Pain in right hand (principal); M67.441 Ganglion, right hand | CPT/HCPCS: 73130; 99203 ==

== ENCOUNTER → 2025-03-09 08:24 | Outpatient (BNVA) | payer MEDICARE, OTHER, SELFPAY | PROVIDERS: PCP Family Medicine; Visit Provider Family Medicine | DX: E78.2 Mixed hyperlipidemia (principal); N40.0 Benign prostatic hyperplasia without lower urinary tract symptoms; I10 Essential (primary) hypertension | CPT/HCPCS: 80053; 80061; 84439; 84443; 85025 ==